=== PATIENT | female | born 1990 | race American Indian/Alaskan Native ===

== ENCOUNTER 2020-12-10 07:52 | Emergency (ER) | payer OTHER ==
[2020-12-10 08:17] VITALS: BP 129/77
--- NOTE | 2020-12-10 10:11 | Emergency Department Report ---
ED Back Pain/Injury HPI - General Chief Complaint: Back Pain/Injury Stated Complaint: CHEST/BACK PAIN Time Seen by Provider: 12/10/20 09:59 Source: patient Limitations: No Limitations - History of Present Illness Initial Comments: 30-year-old female, no past medical history, presents to ED with left-sided back pain. Patient states pain is located underneath her left shoulder blade. Reports onset of pain yesterday. States pain is worse with movement, deep breath, and laying supine. She states the pain feels as though it is taking her breath away. Patient states pain seems to be radiating to her chest. She denies any cough, fever, leg pain or swelling. MD Complaint: back pain -: days(s) (1) Similar Symptoms Previously: No Radiation: other (Chest) Severity: moderate Quality: sharp Consistency: intermittent Improves With: immobilization Worsens With: movement, supine, deep breaths/cough Context: unknown Associated Symptoms: chest pain, shortness of breath. denies: cough, fever/chills Treatments Prior to Arrival: NSAIDS - Related Data Previous Rx's Medication Instructions Recorded Last Taken Type Naproxen [Naprosyn] 500 mg PO BID #20 tablet 12/10/20 Unknown Rx Allergies Allergy/AdvReac Type Severity Reaction Status Date / Time shellfish derived Allergy Severe Anaphylaxis Verified 12/10/20 10:49 iodine Allergy Intermediate Hives Verified 12/10/20 10:49 ED Review of Systems ROS: Stated complaint: CHEST/BACK PAIN Other details as noted in HPI Comment: All other systems reviewed and negative Constitutional: denies: fever Respiratory: shortness of breath. denies: cough Cardiovascular: chest pain Musculoskeletal: other (Denies leg pain or swelling) ED Past Medical Hx - Past Medical History Previous Medical History?: No - Surgical History Past Surgical History?: No - Social History Smoking Status: Current Every Day Smoker Substance Use Type: Alcohol, Marijuana - Medications Home Medications: Home Medications Medication Instructions Recorded Confirmed Last Taken Type Naproxen [Naprosyn] 500 mg PO BID #20 tablet 12/10/20 Unknown Rx ED Physical Exam - General Limitations: No Limitations General appearance: alert, in no apparent distress - Head Head exam: Present: atraumatic, normocephalic - Eye Eye exam: Present: normal appearance, EOMI - ENT ENT exam: Present: mucous membranes moist - Neck Neck exam: Present: normal inspection - Respiratory Respiratory exam: Present: normal lung sounds bilaterally. Absent: respiratory distress, chest wall tenderness - Cardiovascular Cardiovascular Exam: Present: regular rate, normal rhythm - GI/Abdominal GI/Abdominal exam: Present: soft. Absent: distended, tenderness - Extremities Exam Extremities exam: Present: normal inspection. Absent: pedal edema, calf tenderness - Back Exam Back exam: Present: normal inspection, full ROM. Absent: paraspinal tenderness, vertebral tenderness - Neurological Exam Neurological exam: Present: alert, oriented X3 - Psychiatric Psychiatric exam: Present: normal affect, normal mood - Skin Skin exam: Present: warm, dry, intact, normal color ED Course Vital Signs 12/10/20 12/10/20 08:05 11:09 Temperature 97.9 F Pulse Rate 64 Respiratory 18 16 Rate Blood Pressure 129/77 O2 Sat by Pulse 100 Oximetry - Reevaluation(s) Reevaluation #1: 12/10/20 11:38 Patient reports significant improvement of pain following Toradol. ED Medical Decision Making - Lab Data Result diagrams: 12/10/20 10:22 12/10/20 10:22 - Radiology Data Radiology results: report reviewed, image reviewed - Medical Decision Making 30-year-old female with left-sided back and chest pain x3 days, pleuritic in nature. Vital signs are normal. Chest x-ray is normal. Labs are unremarkable, including D-dimer. Patient was given Toradol and reports improvement in her pain. Symptoms likely due to pleurisy. Patient will be discharged at this time with prescriptions. Outpatient follow-up advised with her PCP, return precautions given. - Differential Diagnosis Pneumonia, pneumothorax, PE, pleurisy Critical care attestation.: If time is entered above; I have spent that time in minutes in the direct care of this critically ill patient, excluding procedure time. ED Disposition Clinical Impression: Back pain Disposition: 01 HOME / SELF CARE / HOMELESS Is pt being admited?: No Condition: Stable Instructions: Pleurisy, [id number] Prescriptions: Naproxen [Naprosyn] 500 mg PO BID #20 tablet Referrals: PRIMARY CARE, [Primary Care Provider] - 3-5 Days Forms: Work/School Release Form Time of Disposition: 11:37
--- NOTE | 2020-12-10 10:43 | XRay Report ---
CHEST 2 VIEWS INDICATION / CLINICAL INFORMATION: left chest/back pain. COMPARISON: None available. FINDINGS: SUPPORT DEVICES: None. HEART / MEDIASTINUM: No significant abnormality. LUNGS / PLEURA: No significant pulmonary or pleural abnormality. No pneumothorax. ADDITIONAL FINDINGS: No significant additional findings. IMPRESSION: 1. No acute findings. Signer Name: Francisco Crenshaw MD Signed: 12/10/2020 10:39 AM Workstation Name: [id number]
[2020-12-10 10:53] LABS: Basophils % (Auto) 0.3 % (0.0-1.8); Eosinophils # (Auto) 0.1 K/mm3 (0.0-0.4); Eosinophils % (Auto) 1.9 % (0.0-4.3); Hematocrit 33.7 % (30.3-42.9); Hemoglobin 10.7 gm/dl (10.1-14.3); Lymphocytes # (Auto) 1.3 K/mm3 (1.2-5.4); Lymphocytes % (Auto) 20.1 % (13.4-35.0); Mean Corpuscular HGB Conc 32 % (30-34); Mean Corpuscular Volume 80 fl (79-97); Monocytes # (Auto) 0.5 K/mm3 (0.0-0.8); Monocytes % (Auto) 7.7 % (0.0-7.3); Platelet Count 234 K/mm3 (140-440); Red Blood Count 4.23 M/mm3 (3.65-5.03); Red Cell Distribution Width 12.4 % (13.2-15.2)
[2020-12-10] MEDS ORDERED: KETOROLAC 30 MG/1 ML INJ IV NR (11:00)
[2020-12-10 11:02] LABS: Blood Urea Nitrogen 5 mg/dL (7-17); Calcium 9.1 mg/dL (8.4-10.2); Hemolysis Index 47
[2020-12-10 11:04] LABS: BUN/Creatinine Ratio 10
[2020-12-10 11:05] LABS: INR 0.87 (0.87-1.13)
[2020-12-10 11:06] LABS: Partial Thromboplastin Time 26.4 Sec. (24.2-36.6)
== END 2020-12-10 11:51 | disposition home or self-care (01) ==
LOC: ED 07:52
DX: M54.9 Dorsalgia, unspecified (principal); R07.9 Chest pain, unspecified; F17.200 Nicotine dependence, unspecified, uncomplicated
CPT/HCPCS: 36415; 71046; 80048; 84703; 85025; 85379; 85610; 85730; 96374; 99283; J1885